=== PATIENT | female | born 1980 | race Caucasian/White ===

== ENCOUNTER 2020-04-23 06:36 | Outpatient (CLI) | payer BC ==
[2020-04-24 07:47] LABS: SARS-CoV-2 MS2 Positive; SARS-CoV-2 N Gene Negative; SARS-CoV-2 S Gene Negative; SARS-CoV-2 by NAA Not Detected (NotDetected); SARS-CoV-2 orf1ab Negative
== END 2020-04-23 06:37 | disposition home or self-care (01) ==
LOC: LABBT 06:36
PROVIDERS: ATTEND Orthopaedic Surgery
DX: Z01.812 Encounter for preprocedural laboratory examination (principal); Z20.828 Contact with and (suspected) exposure to other viral communicable diseases; S83.242A Other tear of medial meniscus, current injury, left knee, initial encounter
CPT/HCPCS: 87635; U0003

== ENCOUNTER 2020-04-24 10:11 | Day surgery (SDC) | payer BC ==
[2020-04-23 16:41] VITALS: BMI 21.9
[~2020-04-24 10:11] MED LIST: Bupivacaine PF 0.5% 30 ML VIAL ONE; Dexamethasone 20 MG/5 ML VIAL ONE; Lidocaine 1% PF 5 ML VIAL ONE; Lidocaine 2% w/Epinephrine 1:200K 20 ML VIAL ONE; Metoclopramide HCl 10 MG/2 ML VIAL ONE; Ondansetron PF 4 MG/2 ML Vial ONE; PHENYLEPHRINE-NS 100 MCG/ML 10 ML SYRINGE ONE; PROPOFOL 200 MG/20 ML VIAL ONE
[2020-04-24] MEDS ORDERED: PROPOFOL 20 ML ONE (11:36)
[2020-04-24] MEDS ORDERED: Scopolamine 1.5 mg/72 hour Patch ONE (11:36)
[2020-04-24] MEDS ORDERED: Fentanyl 100 MCG/2 ML VIAL ONE (12:58)
--- NOTE | 2020-04-24 14:52 | OP ---
DATE OF PROCEDURE: 04/24/2020 TITLE OF PROCEDURE: Left knee arthroscopic partial medial meniscectomy. ANESTHESIA: General. BLOOD LOSS: Minimal. SPECIMENS: None. DRAINS: None. COMPLICATIONS: None. FINDINGS AT SURGERY: Complex tear involving most of the posterior horn of the medial meniscus. Unstable cartilage flap. Medial femoral condyle with grade 3 chondromalacia of medial femoral condyle. Lateral compartment intact. ACL intact. Patellofemoral joint intact. DESCRIPTION OF PROCEDURE: Scope was placed in the lateral portal. Probe was placed in the medial portal. I debrided the femoral condyle unstable cartilage flap tears using a shaver and probed this back to a picture that was stable. The posterior meniscus was debrided using basket forceps and shaver, alternating until most of the posterior meniscus was removed. The knee was irrigated. I explored the gutters for loose bodies and no loose bodies. Sterile dressings applied. Job ID: [id number]
[2020-04-24] MEDS ORDERED: HYDROcodone/Acetaminophen 5/325 mg Tablet ONE ×2 (15:17→15:20)
== END 2020-04-24 16:28 | disposition home or self-care (01) ==
LOC: SDC 10:11
PROVIDERS: ATTEND Orthopaedic Surgery
PROC: 0SBD4ZZ Excision of Left Knee Joint, Percutaneous Endoscopic Approach (ICD-10-PCS; principal; 2020-04-24)
DX: S83.232A Complex tear of medial meniscus, current injury, left knee, initial encounter (principal); M94.262 Chondromalacia, left knee; Z79.899 Other long term (current) drug therapy
CPT/HCPCS: J0690; J1100; J2405; J2704; J2765; J3010; S0020